=== PATIENT | female | born 1960 | race Hispanic/Latino ===

== ENCOUNTER 2017-04-27 13:15 | Emergency (ER) | payer OTHER ==
[2017-04-27 13:47] LABS: BASOPHILS % (AUTO) 0.4 % (0.0-5.0); HEMATOCRIT 39.4 % (36-48); LYMPHOCYTES % (AUTO) 37.2 % (21.0-51.0); MEAN CORPUSCULAR HEMOGLOBIN 30.5 pg (27.0-33.0); MEAN CORPUSCULAR HGB CONC 33.2 g/dL (32.0-36.0); MEAN CORPUSCULAR VOLUME 91.7 fL (79-99); MONOCYTES % (AUTO) 4.8 % (3.0-13.0); NEUTROPHILS % (AUTO) 56.6 % (40.0-77.0); PLATELET COUNT (AUTO) 287 K/uL (130-400); RED CELL DISTRIBUTION WIDTH 12.7 % (11.0-15.5)
[2017-04-27 13:52] LABS: APPEARANCE,URINE Clear (CLEAR); BILIRUBIN,URINE Negative (NEGATIVE); COLOR,URINE Yellow (YELLOW); GLUCOSE, URINE (UA) Negative (NEGATIVE); KETONES,URINE Trace mg/dL (NEGATIVE); LEUKOCYTE ESTERASE ,URINE Negative (NEGATIVE); NITRATE,URINE Negative (NEGATIVE); OCCULT BLOOD,URINE Negative (NEGATIVE); PROTEIN,URINE Negative (NEGATIVE); UROBILINOGEN,URINE 0.2 mg/dL (0.2-1.0)
[2017-04-27 13:53] LABS: BACTERIA,URINE Rare /HPF (None Seen); RBC,URINE 0-1 /HPF (0-1); SQUAMOUS EPITHELIAL CELL,UR Rare /LPF (0-2); WBC,URINE None Seen /HPF (0-1)
[2017-04-27 13:57] LABS: CARBON DIOXIDE 30 mmol/L (21-32); CHLORIDE 102 mmol/L (101-111); CREATININE 0.7 mg/dL (0.5-1.5); GLOMERULAR FILTR. RATE CALC 91 mL/min (>60); GLUCOSE,RANDOM 119 mg/dL (70-105); POTASSIUM 3.2 mmol/L (3.5-5.1); SODIUM SERUM 141 mmol/L (136-145); UREA NITROGEN, BLOOD 11 mg/dL (7-18)
[2017-04-27] MEDS ORDERED: FAMOTIDINE/PF 20 MG/2 ML VIAL IV ONE (14:00)
[2017-04-27 14:10] LABS: ALANINE AMINOTRANSFERASE 18 U/L (12-78); ALBUMIN 4.2 g/dL (3.5-5.0); ASPARTATE AMINOTRANSFERASE 16 U/L (10-37); BILIRUBIN,TOTAL 0.6 mg/dL (0.2-1.0); CREATINE KINASE MB < 0.5 ng/mL (0.5-3.6); CREATINE KINASE, TOTAL 68 U/L (21-232); TOTAL PROTEIN, SERUM 7.9 g/dL (6.0-8.3)
[2017-04-27] MEDS ORDERED: MAG HYDROX/AL HYDROX/SIMETH ES 30 ML SUSP UDCUP ONE (15:20)
[2017-04-27] MEDS ORDERED: SUCRALFATE 1 GM TABLET ONE (15:21)
== END 2017-04-27 16:26 | disposition home or self-care (01) ==
LOC: EDH 13:15
DX: R07.89 Other chest pain (principal); R10.13 Epigastric pain; Z87.891 Personal history of nicotine dependence; Z79.899 Other long term (current) drug therapy; Z90.710 Acquired absence of both cervix and uterus
CPT/HCPCS: 36415; 71045; 76705; 80053; 81001; 82550; 82553; 84484 ×2; 85025; 85378; 93005 ×2; 96374; 99285; J3490

== ENCOUNTER 2019-01-29 05:34 | Day surgery (SDC) | payer MEDICARE, OTHER ==
[2019-01-28 12:15] VITALS: BP 126/67
[2019-01-28 12:32] LABS: BASOPHILS % (AUTO) 0.5 % (0.0-5.0); EOSINOPHILS % (AUTO) 1.2 % (0.0-8.0); HEMATOCRIT 37.9 % (36-48); LYMPHOCYTES % (AUTO) 33.3 % (21.0-51.0); MEAN CORPUSCULAR HEMOGLOBIN 30.4 pg (27.0-33.0); MEAN CORPUSCULAR HGB CONC 32.6 g/dL (32.0-36.0); MEAN CORPUSCULAR VOLUME 93.4 fL (79-99); MONOCYTES % (AUTO) 6.6 % (3.0-13.0); NEUTROPHILS % (AUTO) 58.4 % (40.0-77.0); NUCLEATED RED BLOOD CELLS 0.1 % (0.0-0.19); PLATELET COUNT (AUTO) 266 K/uL (130-400); RED BLOOD CELL COUNT(AUTO) 4.06 MIL/uL (4.00-5.50); WHITE BLOOD COUNT (AUTO) 6.5 K/uL (4.8-10.8)
[~2019-01-29] VITALS: Ht 172.7 cm; Wt 64.0 kg
[2019-01-29] VITALS (14 sets, daily range): BP systolic 109–160; BP diastolic 60–77
[~2019-01-29 05:34] MED LIST: ENJUVIA PO
[2019-01-29] MEDS ORDERED: LACTATED RINGERS 1000ML 1,000 ML IV ONE (07:17)
[2019-01-29] MEDS ORDERED: LIDOCAINE HCL MPF 1% 5ML VIAL ONE (08:16)
[2019-01-29] MEDS ORDERED: MIDAZOLAM HCL 1 MG/ML 2ML VIAL ONE (08:16)
[2019-01-29] MEDS ORDERED: PROPOFOL 10 MG/ML 20ML VIAL IV ONE (08:16)
[2019-01-29] MEDS ORDERED: ROCURONIUM 10MG/1ML SYR 10 MG/ML ML ONE (08:17)
[2019-01-29] MEDS ORDERED: FENTANYL CITRATE PF 50 MCG/1 ML 2ML VIAL ONE (08:21)
[2019-01-29] MEDS ORDERED: MEPERIDINE-PF 25 MG/ML SYG ONE ×2 (08:34→09:24)
[2019-01-29] MEDS ORDERED: KETAMINE 50MG/ML SYRINGE 50 MG/ML DISP.SYRIN IV ONE (08:40)
[2019-01-29] MEDS ORDERED: OCTYL 2-CYANOACRYLATE 1 EACH TP ONE (08:45)
[2019-01-29] MEDS ORDERED: GLYCOPYRROLATE 1 MG/5 ML SYRINGE ONE (08:50)
[2019-01-29] MEDS ORDERED: NEOSTIGMINE 5MG/5ML SYR IV ONE (08:50)
--- NOTE | 2019-01-29 11:20 | NUR ---
Pt discharged home, tolerating water, ambulating well with stand-by assistance, voided good amount. Pt reports some nausea that comes and goes, but has not experienced any emesis. Pt denies severe pain. Pt's ob pad changed, light amount of bright red blood present. Pt reminded to call her physician for excessive bleeding or trouble with urinating. Prescription for Mortrin given to spouse. Pt and spouse deny any further questions at this time.
== END 2019-01-29 11:20 | disposition home or self-care (01) ==
LOC: DAH 05:34
PROVIDERS: ATTEND Obstetrics & Gynecology
DX: N39.3 Stress incontinence (female) (male) (principal); Z90.710 Acquired absence of both cervix and uterus; Z98.890 Other specified postprocedural states; Z86.010 Personal history of colon polyps
CPT/HCPCS: 36415; 57288; 85025; 86850; 86900; 86901; A4215; A4221; A4222; A4223; A4351; A4606; A4663; A6260; C1771; J2175 ×2; J2250; J2704; J2710; J3010; J3490 ×2; J7120

== ENCOUNTER → 2024-04-03 | Outpatient (CLI) | payer OTHER ==
--- NOTE | 2024-04-03 11:40 | HMCIMG ---
MRI CERVICAL SPINE WITHOUT CONTRAST INDICATION: M47.22; Pain and "popping" to cervical region with limited range of motion to left side COMPARISON: None. PARAMETERS: Noncontrast multisequence multiplanar imaging of the cervical spine. FINDINGS: Examination is slightly limited secondary to large field of view acquisition. Straightening of the normal lordosis may be related to overlying muscle spasm, underlying degenerative joint disease and/or patient positioning. The cranial-cervical junction, atlanto-dens interval and position of the cerebellar tonsils are within normal limits. The visualized brain stem and spinal cord appear normal in signal. C2-3: No evidence for disc displacement, neuroforaminal narrowing, or spinal stenosis. Mild to moderate right and mild left facet disease. C3-4: Moderate slightly hypertrophic bilateral facet disease contributing to low-grade (2 mm) anterolisthesis of C3 upon C4, and mild bilateral uncovertebral joint arthrosis, without any significant neuroforaminal narrowing or central canal stenosis. C4-5: No evidence for disc displacement, neuroforaminal narrowing, or spinal stenosis. Mild to moderate left and mild right facet disease. C5-6: Extreme the shallow posterior disc-osteophyte complex formation, moderate bilateral uncovertebral joint arthrosis, mild disc height loss, and mild bilateral facet disease contributing to moderate bilateral neuroforaminal narrowing without any significant central canal stenosis. C6-7: Extremely shallow posterior disc-osteophyte complex formation, mild bilateral uncovertebral joint arthrosis, and mild disc height loss without any significant neuroforaminal narrowing or central canal stenosis. C6 vertebral body hemangioma. C7-T1: No evidence for disc displacement, neuroforaminal narrowing, or spinal stenosis. Mild anterior endplate osteophytic spurring at the C4-C5, C5-C6, and C6-C7 levels. No evidence for subluxation. The pre- and paraspinous soft tissues appear unremarkable. ANCILLARY FINDINGS: None IMPRESSION: Limitations as reported. Moderate bilateral neuroforaminal narrowing at the C5-6 level. Level by level analysis, additional minor degenerative changes, and pertinent negatives as reported.
== END | disposition home or self-care (01) ==
LOC: RAH 09:08
PROVIDERS: ATTEND Internal Medicine
DX: M47.22 Other spondylosis with radiculopathy, cervical region (principal); M43.12 Spondylolisthesis, cervical region; M48.02 Spinal stenosis, cervical region; M85.88 Other specified disorders of bone density and structure, other site
CPT/HCPCS: 72141

== ENCOUNTER → 2025-01-03 | Outpatient (CLI) | payer OTHER ==
--- NOTE | 2025-01-04 01:35 | HMCIMG ---
US PELVIS COMPLETE TRANABDOMINAL Clinical Details: Pelvic and perineal pain. Technique: Transabdominal pelvic ultrasound (complete) with image documentation was performed. Findings: Uterus: Removed. Endometrium: Not applicable. Right Ovary: Measures 1.6 ??? 1.1 ??? 1.1 cm with normal vascular flow. The right adnexa is within normal limits. Left Ovary: Removed. Left adnexa is within normal limits. Cul-de-sac: No free fluid is identified. Impression: * Post-hysterectomy and left oophorectomy status. * Normal right ovary and adnexa with preserved vascular flow. * No pelvic free fluid detected. /[place]
== END | disposition home or self-care (01) ==
LOC: RAH 09:36
PROVIDERS: ATTEND Internal Medicine
DX: R10.20 Pelvic and perineal pain unspecified side (principal); Z90.721 Acquired absence of ovaries, unilateral; Z90.710 Acquired absence of both cervix and uterus
CPT/HCPCS: 76856